=== PATIENT | male | born 1990 | race Caucasian/White ===

== ENCOUNTER 2020-07-24 12:38 | Outpatient (CLI) | payer BC, SELFPAY ==
[2020-07-24 12:51] LABS: Hematocrit 42.6 % (40.0-54.0); Hemoglobin 14.7 g/dL (14.0-18.0); Mean Corpuscular HGB Conc 34.5 g/dL (32.0-36.0); Mean Corpuscular Hemoglobin 30.1 pg (27.0-31.0); Mean Corpuscular Volume 87.1 fL (78.0-102.0); Mean Platelet Volume 8.5 fl (8.7-11.0); Platelet Count Result 231 K/mm3 (150-420); Red Blood Count 4.89 M/mm3 (4.70-6.10); Red Cell Distribution Width 12.3 % (11.6-14.4); White Blood Count 11.1 K/mm3 (4.8-10.8)
[2020-07-24 13:33] LABS: Basophils Absolute Auto 0.07 K/mm3 (0.00-0.10); Basophils Percent Auto 0.6 % (0.0-1.0); Eosinophils Absolute Auto 0.89 K/mm3 (0.02-0.50); Eosinophils Percent Auto 8.2 % (1.0-6.0); Immature Granulocyte Absolute 0.05 K/mm3 (0.00-0.00); Immature Granulocyte Percent A 0.5 % (0.0-0.0); Lymphocytes Percent Auto 16.7 % (18.0-42.0); Monocytes Absolute Auto 1.13 K/mm3 (0.10-0.90); Monocytes Percent Auto 10.5 % (2.0-11.0); Neutrophils Absolute Auto 6.9 K/mm3 (1.7-7.2); Neutrophils Percent Auto 63.5 % (50.0-70.0)
== END 2020-07-24 12:39 | disposition home or self-care (01) ==
LOC: CHSLAB 12:40
PROVIDERS: PCP Family Medicine; Visit Provider Family Medicine
DX: J45.909 Unspecified asthma, uncomplicated (principal)
CPT/HCPCS: 36415; 85025; 85027

== ENCOUNTER 2020-08-26 15:04 | Emergency (ER) | payer SELFPAY ==
--- NOTE | 2020-08-26 15:09 | ED.ASTHMA ---
HPI - Asthma General Chief Complaint: Asthma Stated Complaint: asthma trouble breathing Time Seen by Provider: 08/26/20 15:09 Source: patient and RN notes reviewed History of Present Illness HPI Narrative: Patient is a 29-year-old male who presents the urgent care with complaints of asthma exacerbation with wheezing. Patient states is been ongoing for approximately 6 weeks. Patient states that the springtime is very difficult for him and seems to be getting worse every year . Patient states that the last week has been worse. Also reports that he lost his insurance but has several inhalers at home and has been using his mother's albuterol nebulizer solution. Patient states that he has used his inhaler approximately 25 times today as well as 2 neb treatments. Patient states the last nebulizer treatment was at 5:30 AM. Patient is currently denying chest pain/tightness. States that he is feeling okay as far as shortness of breath . Denies of any fever, chills, nausea, vomiting. No other acute complaints. No acute distress noted. Patient aware of the plan of care. Some parts of this dictation were generated by voice recognition software and may contain typographical and/or grammatical inaccuracies. Related Data Home Medications Medication Instructions Recorded Confirmed sumatriptan succinate 50 mg tablet See Rx Instructions PO .COMPLEX 03/15/19 08/26/20 Allergies Allergy/AdvReac Type Severity Reaction Status Date / Time No Known Allergies Allergy Verified 08/26/20 15:05 Review of Systems Review of Systems: Narrative: CONSTITUTIONAL: Denies fever, chills, or sweats. EYES: Denies visual changes, redness, or discharge. ENT: Denies rhinorrhea, congestion, sore throat, or otalgia. CARDIOVASCULAR: Denies chest pain, palpitations, or edema. RESPIRATORY: Reports a mild nonproductive cough with intermittent dyspnea and wheezing GASTROINTESTINAL: Denies abdominal pain, nausea, vomiting, or diarrhea. GENITOURINARY: Denies dysuria or hematuria. SKIN: Denies rash or itching. MUSCULOSKELETAL: Denies back pain, joint pain, or myalgia. NEUROLOGIC: Denies headache, numbness, or weakness. All other systems reviewed are negative, except as documented in HPI. [facility] Past Medical History Medical History (Updated 08/26/20 @ 15:32 by EVELIN Zaidi) Migraine Pulmonary nodule Surgical History Surgical History No history of previous surgery Family History Family History Father Unknown family medical history Mother Unknown family medical history Social History Social History Smoking status: Never smoker Substance use: current Substance use type: marijuana Additional living arrangements comments: Single. 3 Children. Additional occupation/education comments: Employed at [employer]. Gender identity (if verbalized by the patient): Male Comments At the time of my signature, I reviewed and agree with the nursing past medical, surgical, social, and family history. There is no relevant family history pertinent to the patient complaint. Exam Narrative: Exam Narrative: GENERAL: This is a well-nourished, well-developed patient, in no apparent distress. HEAD: normocephalic, atraumatic. EYES: PERRL. Sclera clear/white. Vision is grossly intact. EARS: External ears normal, auditory canals clear and without drainage, TMs normal without perforation. Hearing grossly intact. NOSE: External nose normal with no obvious nasal discharge, nares without redness, no rhinorrhea. THROAT: Mucous membranes moist, posterior pharynx clear. NECK: Neck supple CARDIOVASCULAR: Regular rate and rhythm without murmurs, gallops, or rubs. RESPIRATORY: Expiratory wheezes in all lung de leon GASTROINTESTINAL: Abdomen soft, non-tender, nondistended. Bowel sounds are active. No hepat
[2020-08-26 15:10] VITALS: BP 148/70; PULSE 73; RESP 18; TEMP 36.5; O2SAT 98
== END 2020-08-26 15:35 | disposition home or self-care (01) ==
PROVIDERS: Emergency Provider Nurse Practitioner Family
DX: J45.901 Unspecified asthma with (acute) exacerbation (principal)
CPT/HCPCS: 99213; G0463

== ENCOUNTER 2020-09-11 14:05 | Outpatient (CLI) | payer SELFPAY ==
--- NOTE | 2020-09-12 12:44 | P.PCNPFT_ITS ---
PFT Procedure Performed PFT Procedure Performed Spirometry with Pre/Post Bronchodilator Plethysmography (Lung Vol) Diffusing Cap (DLCO) Flow Vol Loop PFT Interpretation This is a pulmonary function test with pre and post-bronchodilator spirometry, plethysmography and diffusing capacity. The test was performed and results interpreted in accordance with the 2019 and 2005 ATS/ERS Task Force guidelines respectively using the Global Lung Function Initiative-2012 reference equations. Patient demonstrated good effort and cooperation. Reproducibility criteria were met. The quality of the pre bronchodilator spirometry maneuver was Grade B and post bronchodilator spirometry maneuver was Grade A. The certified emergency vehicle technician noted that the patient had audible inspiratory and expiratory wheezes throughout the testing. Findings: Spirometry: There is decreased maximal expiratory airflow at all lung volumes with a concave expiratory flow tracing. The pre bronchodilator FVC is 4.94 L, 85% predicted. The pre bronchodilator FEV1 is 2.64 L, 55% predicted. The FEV1: FVC ratio is 53%. The post bronchodilator FVC is 4.86 L, representing a 2% decrease. The post bronchodilator FEV1 is 2.24 L, representing a 15% decrease. Plethysmography: The total lung capacity is 8.84 L, 121% predicted. The functional residual capacity is 4.31 L, 119% predicted. The residual volume is 3.06 L, 174% predicted. Diffusing capacity: The absolute diffusion capacity is 26.2, 73% predicted. The diffusing capacity corrected for alveolar volume is 4.41, 88% predicted. Impression: There is a moderately severe obstructive abnormality without significant improvement after inhaling a single dose of albuterol. The increase in residual volume is consistent with air trapping from an obstructive abnormality. The absolute diffusing capacity is mildly decreased and normalizes when corrected for alveolar volume. Of note, the certified emergency vehicle technician noted that the patient had audible inspiratory and expiratory wheezes throughout the testing. There are no prior studies for comparison
== END 2020-09-11 14:06 | disposition home or self-care (01) ==
PROVIDERS: PCP Family Medicine; Visit Provider Allergy & Immunology
DX: J45.20 Mild intermittent asthma, uncomplicated (principal)
CPT/HCPCS: 94060; 94726; 94729

== ENCOUNTER 2022-06-13 09:48 | Outpatient (CLI) | payer OTHER, SELFPAY ==
--- NOTE | ~2022-06-13 | XR_ITS ---
Left ankle Technique: AP and lateral views were obtained. Clinical History: Pain Findings: No acute fracture or dislocation is seen. Osseous alignment is anatomic. Ankle mortise and other visualized joint spaces are preserved. Soft tissues are otherwise unremarkable. Impression: Unremarkable left ankle. Reviewed, dictated and finalized at [facility]. ON INSTRUCTOR Impression: Unremarkable left ankle.
== END 2022-06-13 09:49 | disposition home or self-care (01) ==
LOC: CHSIMG 09:51
PROVIDERS: PCP Family Medicine; Visit Provider Nurse Practitioner Family
DX: S99.919A Unspecified injury of unspecified ankle, initial encounter (principal)
CPT/HCPCS: 73600

== ENCOUNTER 2022-08-20 09:54 | Emergency (ER) | payer OTHER, SELFPAY ==
--- NOTE | ~2022-08-20 | XR_ITS ---
EXAMINATION: XR ankle RT min 3V DATE: 08/20/2022 10:32 INDICATION: Right ankle injury and pain. TECHNIQUE: 4 views of right ankle were obtained. COMPARISON: None. FINDINGS: Bone alignment is normal. No fracture. Joint spaces are normal. IMPRESSION: 1. No fracture. Reviewed, dictated and finalized at location A. IMPRESSION: 1. No fracture.
[2022-08-20 09:54] VITALS: BP 144/102; PULSE 82; RESP 16; TEMP 36.4; O2SAT 96
[2022-08-20 10:05] VITALS: BP 144/102; PULSE 82; RESP 16; TEMP 36.4; O2SAT 96
[2022-08-20] MEDS: ACETAMINOPHEN 500 MG TABLET 1000 MG PO (10:36)
[2022-08-20] MEDS: IBUPROFEN 400 MG TABLET 800 MG PO (10:37)
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
[2022-08-20 11:09] VITALS: BP 121/74; PULSE 62; RESP 14; TEMP 36.4; O2SAT 97
== END 2022-08-20 11:14 | disposition home or self-care (01) ==
PROVIDERS: Emergency Provider Emergency Medicine; PCP Family Medicine
DX: S93.401A Sprain of unspecified ligament of right ankle, initial encounter (principal); S96.911A Strain of unspecified muscle and tendon at ankle and foot level, right foot, initial encounter; X50.0XXA Overexertion from strenuous movement or load, initial encounter
CPT/HCPCS: 73610; 99283; A9270

== ENCOUNTER 2023-02-15 14:25 | Outpatient (CLI) | payer OTHER, SELFPAY ==
[2023-02-17 20:05] LABS: H pylori, Urea Breath NOT DETECTED (NOT DETECTED)
== END 2023-02-15 14:26 | disposition home or self-care (01) ==
LOC: CHSLAB 14:26
PROVIDERS: PCP Family Medicine; Visit Provider Family Medicine
DX: K21.9 Gastro-esophageal reflux disease without esophagitis (principal)
CPT/HCPCS: 83013

== ENCOUNTER 2024-01-21 20:19 | Emergency (ER) | payer OTHER, SELFPAY ==
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
[2024-01-21 20:31] VITALS: BP 143/81; PULSE 80; RESP 18; TEMP 36.6; O2SAT 99
[2024-01-21 20:52] VITALS: BP 136/83; PULSE 85; RESP 20; O2SAT 99
== END 2024-01-21 20:52 | disposition home or self-care (01) ==
PROVIDERS: Emergency Provider Emergency Medicine; PCP Family Medicine
DX: S01.01XA Laceration without foreign body of scalp, initial encounter (principal); W22.8XXA Striking against or struck by other objects, initial encounter; Y93.72 Activity, wrestling; Y99.0 Civilian activity done for income or pay
CPT/HCPCS: 12002; 99282

== ENCOUNTER 2025-01-08 19:04 | Emergency (ER) | payer OTHER, SELFPAY ==
[2025-01-08 19:04] VITALS: BP 168/100; PULSE 74; RESP 26; TEMP 36.4; O2SAT 100
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
--- NOTE | 2025-01-08 19:14 | ED.HA ---
HPI - Headache General Chief Complaint: Headache Stated Complaint: MIGRAINE Time Seen by Provider: 01/08/25 19:12 Source: patient and family Mode of arrival: ambulatory Limitations: no limitations History of Present Illness HPI Narrative: Patient is a 34-year-old male with known migraines here for a similar migraine 6/10 pain. It is the entire head. Similar to prior migraines. Not the worst headache in life. MD elicited complaint: headache and migraine Pertinent past history: migraines Onset (ago): day(s) (Three) Location: diffuse and generalized Severity: moderate Pain scale (0-10): 6 Quality & Timing: aching, throbbing and sharp Exacerbating factors: exertion, movement of head/neck, sitting/standing, light and noise Relieving factors: rest and dark room Context: occurred at rest, occurred with exertion/activity and other (Recurrent migraines since childhood) Associated symptoms: photophobia and sensitivity to sound Treatments prior to arrival: none Related Data Home Medications ?Medication ?Instructions ?Recorded ?Confirmed ?Last Taken ?Type benralizumab 30 mg/mL subcutaneous 1 ml subcut MONTHLY 06/13/22 01/29/24 Unknown History syringe (Fasenra) Allergies Allergy/AdvReac Type Severity Reaction Status Date / Time No Known Allergies Allergy Verified 01/08/25 19:51 Review of Systems Review of Systems: All systems reviewed & are unremarkable except as noted in HPI and below Constitutional: Constitutional: Reports no additional constitutional complaints Eyes: Eyes: Reports no additional eye complaints ENT: Reports system reviewed and no additional complaints, except as documented Cardiovascular: Cardiovascular: Reports no additional cardiovascular complaints Respiratory: Respiratory: Reports no additional respiratory complaints Gastrointestinal: Gastrointestinal: Reports no additional gastrointestinal complaints Genitourinary: Genitourinary: Reports no additional male genitourinary complaints Musculoskeletal: Musculoskeletal: Reports no additional musculoskeletal complaints Integumentary/Breasts: Skin/Breast: Reports system reviewed and no additional complaints, except as docu Neurologic: Reports system reviewed and no additional complaints, except as documented Psychiatric: Psychiatric: Reports no additional psychiatric complaints Endocrine: Endocrine: Reports no additional endocrine complaints Hematologic/Lymphatic: Hematologic/Lymphatic: Reports no additional hematologic/lymphatic complaints Allergic/Immunologic: Allergic/Immunologic: Reports no additional allergic/immunologic complaints PMFSH Past Medical History Medical History Pulmonary nodule Migraine Surgical History Surgical History No history of previous surgery Family History Family History Father Unknown family medical history Mother Unknown family medical history Social History Social History Smoking status: Never smoker Substance use: current Substance use type: marijuana Lack of Transportation: No Lack of Food: Never True Current Housing: I Have Housing Concerned About Future Housing: No Difficulty Paying Gas/Electric Bills: No Difficulty Paying for Meds: No Currently Unemployed: No Education: High School Diploma/GED Difficulty w/ Childcare or Family Care: No Additional living arrangements comments: Single. 3 Children. Occupation/Education: occupation Additional occupation/education comments: Employed at [employer]. Gender identity (if verbalized by the patient): Male Exam Const: General: healthy appearing Nutritional Appearance: well nourished Orientation/consciousness: patient oriented x3 HENMT: Head: normal to inspection Ears: external ears normal Face/Nose/Sinus: Normal external nose present Eyes: Conjunctivae: conjunctivae normal Pupils: Equal, round and reactive pupils present EOM: EOMs intact bilaterally Neck: Neck: normal visual inspection Chest: Chest palpation & inspection: normal inspection of the chest Resp: Effort & Inspection: normal respiratory effort and not labored Auscultation: clear to auscultation bilaterally and no crackles Cardio: Rate: regular rate Rhythm: regular rhythm Heart sounds: no murmurs GI: Inspection: non-distended GI Palp: Yes Soft to palpation and No Tenderness to palpation present (GI) Auscultation: normal bowel sounds : General: Yes bladder normal to palpation Back/Spine/Pelvis: Back: no CVA tenderness Skin: General skin exam: normal color Rashes: no rashes Wounds: no wounds Neuro: General: patient oriented x3, moves all extremities, no meningeal signs, no focal motor deficits and CN's II-XI intact bilaterally Cranial nerves: Yes Nystagmus not present Speech: normal speech Gait exam (Neuro): Normal gait present Extrem: General: normal to inspection Psych: Mental Status: mental status grossly normal Affect: normal affect Attitude: cooperative Course Vital Signs Vital signs: Vital Signs Temperature 36.4 C 01/08/25 19:04 Pulse Rate 74 01/08/25 19:04 Respiratory Rate 26 H 01/08/25 19:04 Blood Pressure 168/100 H 01/08/25 19:04 Pulse Oximetry 100 01/08/25 19:04 Oxygen Delivery Room Air 01/08/25 19:04 Temperature 36.4 C 01/08/25 19:04 Pulse Rate 74 01/08/25 19:04 Respiratory Rate 26 H 01/08/25 19:04 Blood Pressure 168/100 H 01/08/25 19:04 Pulse Oximetry 100 01/08/25 19:04 Oxygen Delivery Room Air 01/08/25 19:04 MDM - Headache MDM Narrative Medical decision making narrative: Patient is a 34-year-old male with known recurrent migraines having a similar headache tonight. We will do triple therapy with IV fluid. Toradol, Benadryl, Reglan. No workup needed at this time. Discharge Plan Discharge Clinical Impression: Cephalgia Qualifiers: Headache type: other headache syndrome Qualified Code(s): G44.89 - Other headache syndrome Patient Disposition: Home Condition: Stable Instructions: Migraine Headache (ED) Patient Language: Telugu Prescriptions: No Action Fasenra 30 mg/mL syringe 1 ml subcut MONTHLY [facility] [employer] 160-9-4.8 mcg/actuation HFA aerosol inhaler 2 inh inhalation BID Qty: 10.7 2RF albuterol sulfate 2.5 mg /3 mL (0.083 %) solution for nebulization See Rx Instructions .ROUTE .COMPLEX Qty: 90 3RF Dose Instruction: INHALE THE CONTENTS OF ONE VIAL PER NEBULIZATION EVERY SIX HOURS NEEDED FOR WHEEZING Rx Instructions: INHALE THE CONTENTS OF ONE VIAL PER NEBULIZATION EVERY SIX HOURS NEEDED FOR WHEEZING albuterol sulfate 90 mcg/actuation HFA aerosol inhaler See Rx Instructions .ROUTE .COMPLEX Qty: 8.5 3RF Dose Instruction: INHALE ONE PUFF EVERY FOUR HOURS NEEDED FOR SHORTNESS OF BREATH OR WHEEZING Rx Instructions: INHALE ONE PUFF EVERY FOUR HOURS NEEDED FOR SHORTNESS OF BREATH OR WHEEZING pantoprazole 40 mg tablet,delayed release (DR/EC) See Rx Instructions .ROUTE .COMPLEX Qty: 56 0RF Dose Instruction: TAKE ONE TABLET BY MOUTH EVERY MORNING Rx Instructions: TAKE ONE TABLET BY MOUTH EVERY MORNING Follow-up/Referrals: Brian Horn DO [Primary Care Provider, [facility]] Time of Disposition: 20:12
[2025-01-08] MEDS: SODIUM CHLORIDE 0.9% IV 1,000 ML 999 ML IV CONT (19:26)
[2025-01-08] MEDS: KETOROLAC 30 MG/ML VIAL (*BKC) IV PUSH (19:27)
[2025-01-08] MEDS: METOCLOPRAMIDE HCL INJ 10 MG/2 ML VIAL IV PUSH (19:28)
--- NOTE | 2025-01-08 19:30 | PC.NURSE ---
PATIENT IS CURRENTLY RESTING ON STRETCHER WITH TOWEL OVER HIS EYES, LIGHTS TURNED OFF. MOTHER AT HIS SIDE. CALL LIGHT IN REACH
--- OUTSIDE RECORDS SUMMARY | 2025-01-08 20:08 | XMS_ITS | Clinical Summary ---
Author Organization [facility] Address [facility] [place] [address] Care Team Providers Care Web Administrator Name Role Phone Brian Horn DO Primary Care Provider [phone] Allergies No known active allergies Medications ARABELLA [...] 09/12/2023 Other acute osteomyelitis of left tibia ([facility]) 09/12/2023 Family History Medical History Relation Comments [...] 3-dose SCD M series) 09/16/2015 PHQ-2 (Physician [place]) 04/17/2024 COVID-19 Vaccine ( - 2023-2 5 [...] complete this topic Insurance [employer] Care Teams Web Administrator Relationship Specialty Start Date End Date Brian Horn DO [address] [place] [address] PCP - General FAMILY PRACTICE 09/12/23
--- OUTSIDE RECORDS SUMMARY | 2025-01-08 20:08 | XMS_ITS | Clinical Summary ---
Author Organization [facility] Address [address] [place] [address] Phone Care Team Providers Care Rug Repairer Name Role Phone Brian Horn DO Primary Care Provider [phone] Allergies No known active allergies Social History Tobacco Use Types Packs/Day Years Used Date Smoking Tobacco: Never Smokeless Tobacco: Never Tobacco Cessation:Counseling Given: Not Answered Alcohol Use Standard Drinks/Week Comments Yes 0 (1 standard drink = 0.6 oz pur e alcohol) Feeling Safe Answer Date Recorded Are you in a relationship wi th someone who hurts you emotionally and/or physically? No 10/04/2023 Sex and Gender Information Value Date Recorded Sex Assigned at Not on file Legal Sex Male 5:29 PM CDT Gender Identity Not on file Sexual Orientation Not on file Last Filed Vital Signs Vital Sign Reading Time Taken Comments Blood Pressure 148/98 10/04/2023 8:00 PM CDT Pulse 58 10/04/2023 8:00 PM CDT Temperature 36.7 C (98 F) 10/04/2023 8:00 PM CDT Respiratory Rate 16 10/04/2023 8:00 PM CDT Oxygen Saturation 97% 10/04/2023 8:00 PM CDT Inhaled Oxygen Concentration - - Weight - - Height - - Body Mass Index - - Plan of Treatment Health Maintenance Due Date Last Done Comments DTAP/TDAP/TD VACCINES (1 - Tdap) 09/16/2007 HEPATITIS B VACCINES (1 of 3 - 19+ 3-dose series) 04/2007 HPV VACCINES (1 - 3-dose SCDM series) 09/16/2015 INFLUENZA VACCINE (#1) 2024 Insurance [facility] CHOICE [id number] [employer] Care Teams Rug Repairer Relationship Specialty Start Date End Date Brian Horn DO [address] [place] [address] PCP - General Family Practice 10/04/23
[2025-01-08 20:18] VITALS: BP 136/84; PULSE 80; RESP 18; O2SAT 97
== END 2025-01-08 20:18 | disposition home or self-care (01) ==
PROVIDERS: Emergency Provider Emergency Medicine; PCP Family Medicine
DX: G44.89 Other headache syndrome (principal)
CPT/HCPCS: 96361; 96374; 96375; 99284; J1200; J1885; J2765; J7030

== ENCOUNTER 2025-02-11 14:21 | Emergency (ER) | payer OTHER, SELFPAY ==
[2025-02-11 14:21] VITALS: BP 132/96; PULSE 85; RESP 16; TEMP 37.1; O2SAT 97
--- NOTE | 2025-02-11 14:43 | ED.NECK ---
HPI - Neck Pain/Injury General Chief Complaint: Neck Pain/Injury Stated Complaint: right shoulder pain Time Seen by Provider: 02/11/25 14:42 Source: patient Mode of arrival: ambulatory Limitations: no limitations History of Present Illness HPI Narrative: 34 years old white male came to the ED by private car from work complaining of right-sided neck pain and right upper shoulder pain started at 10:00 a.m. 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 He denies other injuries. He denies any tingling, numbness or weakness of the right upper extremity. Pain is sharp stabbing worse with certain position and certain movement, better with certain position. Patient denies having similar symptoms. Related Data Home Medications ?Medication ?Instructions ?Recorded ?Confirmed ?Last Taken ?Type benralizumab 30 mg/mL subcutaneous 1 ml subcut MONTHLY 06/13/22 01/29/24 Unknown History syringe (Fasenra) Allergies Allergy/AdvReac Type Severity Reaction Status Date / Time No Known Allergies Allergy Verified 02/11/25 14:51 Review of Systems Review of Systems: All systems reviewed & are unremarkable except as noted in HPI and below PMFSH Past Medical History Medical History Pulmonary nodule Migraine Surgical History Surgical History No history of previous surgery Family History Family History Father Unknown family medical history Mother Unknown family medical history Social History Social History Smoking status: Never smoker Substance use: current Substance use type: marijuana Lack of Transportation: No Lack of Food: Never True Current Housing: I Have Housing Concerned About Future Housing: No Difficulty Paying Gas/Electric Bills: No Difficulty Paying for Meds: No Currently Unemployed: No Education: High School Diploma/GED Difficulty w/ Childcare or Family Care: No Additional living arrangements comments: Single. 3 Children. Occupation/Education: occupation Additional occupation/education comments: Employed at [employer]. Gender identity (if verbalized by the patient): Male Exam Narrative: General appearance: Well-developed, well-nourished Skin: Normal color Head: Normocephalic, nontraumatic Eyes: Clear conjunctiva ENT: Oropharynx normal, ears normal, nose normal Neck: Supple, mild diffuse tenderness right side of the neck, no bruises, no swelling, Chest and respiratory: Airway patent, no respiratory distress, no accessory muscle use Heart: Regular rate/rhythm Abdomen: Soft, nontender, no organomegaly, quiet bowel sounds Vascular: Normal peripheral pulses, normal capillary refill. Musculoskeletal: Diffuse tenderness right supraspinatus muscle and the top of the right shoulder. No limited range of motion. Neurologic: Alert and oriented ?3, SOCIAL ECONOMIST is normal as tested, no gross motor deficit MDM - Neck Pain/Injury MDM Narrative Medical decision making narrative: Muscular strain/sprain is my concern. No labs or imaging are required at this time. Patient received ibuprofen and [place] in the ED prior to discharge on naproxen and cyclobenzaprine. The pt was discharged to home.the pt,s condition upon discharge was fair,education was provided to the pt in reference to the final impression,discharge study results,treatment,prognosis and need for follow up . Differential Diagnosis Differential diagnosis: Likely whiplash injury to neck and strain of neck muscle Critical Care Time Critical Care Time Critical Care Time: No Discharge Plan Discharge Clinical Impression: Cervicalgia Patient Disposition: Home Condition: Stable Instructions: Cervical Sprain (ED), Neck Pain (ED) Additional Instructions: Return if symptoms are worsening , call your family physician for appointment, take Tylenol as as needed for aches and pain, continue home medications. Massage Heating pad Neck exercise Patient Language: Slovenian Prescriptions: New naproxen [Naprosyn] 500 mg tablet 500 mg PO BID PRN (Reason: pain) Qty: 14 0RF cyclobenzaprine 10 mg tablet 10 mg PO TID PRN (Reason: muscle spasm) Qty: 20 0RF No Action Fasenra 30 mg/mL syringe 1 ml subcut MONTHLY [employer] [employer] 160-9-4.8 mcg/actuation HFA aerosol inhaler 2 inh inhalation BID Qty: 10.7 2RF albuterol sulfate 2.5 mg /3 mL (0.083 %) solution for nebulization See Rx Instructions .ROUTE .COMPLEX Qty: 90 3RF Dose Instruction: INHALE THE CONTENTS OF ONE VIAL PER NEBULIZATION EVERY SIX HOURS NEEDED FOR WHEEZING Rx Instructions: INHALE THE CONTENTS OF ONE VIAL PER NEBULIZATION EVERY SIX HOURS NEEDED FOR WHEEZING albuterol sulfate 90 mcg/actuation HFA aerosol inhaler See Rx Instructions .ROUTE .COMPLEX Qty: 8.5 3RF Dose Instruction: INHALE ONE PUFF EVERY FOUR HOURS NEEDED FOR SHORTNESS OF BREATH OR WHEEZING Rx Instructions: INHALE ONE PUFF EVERY FOUR HOURS NEEDED FOR SHORTNESS OF BREATH OR WHEEZING pantoprazole 40 mg tablet,delayed release (DR/EC) See Rx Instructions .ROUTE .COMPLEX Qty: 56 0RF Dose Instruction: TAKE ONE TABLET BY MOUTH EVERY MORNING Rx Instructions: TAKE ONE TABLET BY MOUTH EVERY MORNING Follow-up/Referrals: Brian Horn, [Primary Care Provider, Family Practice] Stand Alone Forms: Work/School Release IP
[2025-02-11] MEDS: HYDROcodone/acetaminophen (*CRX) 5-325 MG TABLET 1 TAB PO (14:59)
[2025-02-11] MEDS: IBUPROFEN 600 MG TABLET PO (15:00)
--- OUTSIDE RECORDS SUMMARY | 2025-02-11 16:45 | XMS_ITS | Clinical Summary ---
Author Organization [facility] Address [address] [place] [address] Phone Care Team Providers Care Customer Data Technician Name Role Phone Brian Horn DO Primary Care Provider [phone] Allergies No known active allergies Social History [...] series) 09/16/2015 INFLUENZA VACCINE (#1) 2024 Insurance [facility] CHOICE [id number] [employer] Care Teams Customer Data Technician Relationship Specialty Start Date End Date Brian Horn DO [address] [place] [address] PCP - General Family Practice 10/04/23
--- OUTSIDE RECORDS SUMMARY | 2025-02-11 16:45 | XMS_ITS | Clinical Summary ---
Author Organization [facility] Address [facility] [place] [address] Care Team Providers Care Director Of Field Coordination Name Role Phone Brian Horn DO Primary Care Provider [phone] Allergies No known active allergies Medications GREGSAMEER AEROSPHERE 160-9-4.8 MCG/ACT Aerosol Inhale 1 puff [...] 09/12/2023 Other acute osteomyelitis of left tibia 09/12/19 Family History Medical History Relation Comments No [...] 3-dose SCD M series) 09/16/2015 PHQ-2 (Physician [place]) 04/17/2024 COVID-19 Vaccine (1 - 2024-2 6 season) 2024 Influenza Adult (#1) 2025 Hepatitis A Vaccines Aged Out No long er eligible based on patient's age to complete this topic Meningococcal B Vaccine Aged Out No l [...] patient's age to complete this topic Insurance [facility] Care Teams Director Of Field Coordination Relationship Specialty Start Date End Date Brian Horn DO [address] [place] [address] PCP - General FAMILY PRACTICE 09/12/23
--- OUTSIDE RECORDS SUMMARY | 2025-02-11 17:15 | XMS_ITS | Clinical Summary ---
Author Organization [facility] Address [address] [place] [address] Phone Care Team Providers Care Ground Services Instructor Name Role Phone Brian Horn DO Primary Care Provider [phone] Allergies No known active allergies Social History [...] series) 09/16/2015 INFLUENZA VACCINE (#1) 2024 Insurance [facility] CHOICE [id number] [employer] Care Teams Ground Services Instructor Relationship Specialty Start Date End Date Brian Horn DO [address] [place] [address] PCP - General Family Practice 10/04/23
--- OUTSIDE RECORDS SUMMARY | 2025-02-11 17:15 | XMS_ITS | Clinical Summary ---
Author Organization [facility] Address [facility] [place] [address] Care Team Providers Care Pens And Pencils Repairer Name Role Phone Brian Horn DO Primary Care Provider [phone] Allergies No known active allergies Medications GREGSAMEER [...] 3-dose SCD M series) 09/16/2015 PHQ-2 (Physician [place]) 04/17/2024 COVID-19 Vaccine (1 - 2024-2 6 [...] patient's age to complete this topic Insurance [facility] Care Teams Pens And Pencils Repairer Relationship Specialty Start Date End Date Brian Horn DO [address] [place] [address] PCP - General FAMILY PRACTICE 09/12/23
== END 2025-02-11 15:04 | disposition home or self-care (01) ==
LOC: CHSED 14:51
PROVIDERS: Emergency Provider Emergency Medicine; PCP Family Medicine
DX: M54.2 Cervicalgia (principal); M25.511 Pain in right shoulder
CPT/HCPCS: 99283; A9270